=== PATIENT | female | born 2000 | race Caucasian/White ===

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

== ENCOUNTER 2024-05-28 23:02 | Emergency (ER) | payer BC ==
[~2024-05-28] VITALS: Ht 165.1 cm; Wt 99.8 kg
[2024-05-28 23:27] VITALS: BP 136/95
[2024-05-28] MEDS ORDERED: Cetirizine Hydrochloride 10 MG TAB PO ONE (23:55)
[2024-05-29] MEDS ORDERED: CETIRIZINE10 MG PO (00:03)
== END 2024-05-29 00:14 | disposition home or self-care (01) ==
LOC: ED 23:02
DX: O26.891 Other specified pregnancy related conditions, first trimester (principal); T78.49XA Other allergy, initial encounter; O10.911 Unspecified pre-existing hypertension complicating pregnancy, first trimester; K21.9 Gastro-esophageal reflux disease without esophagitis; F90.9 Attention-deficit hyperactivity disorder, unspecified type; Z3A.01 Less than 8 weeks gestation of pregnancy; Z98.890 Other specified postprocedural states; X58.XXXA Exposure to other specified factors, initial encounter

== ENCOUNTER → 2024-06-21 | Outpatient (CLI) | payer BC ==
[~2024-06-21] MED LIST changes: +CETIRIZINE10 MG PO
== END | disposition home or self-care (01) ==
LOC: LAB 17:37
PROVIDERS: ATTEND Physician Assistant
DX: O36.80X0 Pregnancy with inconclusive fetal viability, not applicable or unspecified (principal)

== ENCOUNTER → 2024-07-04 | Outpatient (CLI) | payer BC | END | disposition home or self-care (01) | LOC: LAB 17:20 | PROVIDERS: ATTEND Physician Assistant | DX: O03.9 Complete or unspecified spontaneous abortion without complication (principal) ==

== ENCOUNTER → 2024-07-21 | Outpatient (CLI) | payer BC | END | disposition home or self-care (01) | LOC: LAB 15:20 | PROVIDERS: ATTEND Physician Assistant | DX: O03.9 Complete or unspecified spontaneous abortion without complication (principal) ==